=== PATIENT | male | born 1990 | race Caucasian/White ===

== ENCOUNTER 2017-03-29 10:46 | Emergency (ER) | payer OTHER ==
[~2017-03-29 10:46] MED LIST: DOXYCYCLINE HY100 MG PO; NO MEDICATIONS; PROVENTIL HFA6.7 GM IH
== END 2017-03-29 14:33 ==
LOC: EDMED 10:46
DX: R07.89 Other chest pain (principal); F17.200 Nicotine dependence, unspecified, uncomplicated